=== PATIENT | male | born 1950 | race Caucasian/White ===

== ENCOUNTER 2020-10-15 15:14 | Observation (INO) ==
--- NOTE | 2020-10-15 15:28 | Emergency Department Note ---
Impression & Plan Atrial fibrillation with rapid ventricular response ED Provider Note NAME: HARLEY CARNES AGE: 70 SEX: M : 1950 ARRIVES VIA: Walk-In INFORMANT: Patient, ED PROVIDER(S): zE Stratton MD Chief Complaint: Irregular heartbeat HPI: Patient does present with concern for irregular heartbeat. The patient does have a history in 2018 of intermittent A. fib which subsequently became persistent where the patient did require an ablation. During this procedure which occurred at [facility] under Dr. Nguyen the patient did develop a pericardial tamponade and did require pericardiocentesis. The patient subsequently had been on metoprolol and Eliquis for a period of time but he was taken off this back in May. The patient does not have any local follow-up. The patient is some of his time between here in [place]. Patient denies any fevers, chills, chest pains or shortness of breath. The patient did notice today though that he was having persistent tachycardia and that his cardia mobile was noted that the patient did have A. fib with an elevated heart rate. The patient states that this has been intermittent for 2 weeks but persistent today. Patient has had some mild fatigue. Patient denies shortness of breath recent travel Covid symptoms or lower extremity swelling. No prior DVT or PE. The patient is currently not not on any medications. ROS: See HPI for pertinent positives and negatives. A total of 10 systems were reviewed and otherwise negative. Past medical history: See below Surgical history: See below Social history: See below Physical Exam: GENERAL: Wearing a mask. NAD, non-toxic. EYE EXAM: Normal conjunctiva. PERRL, no anisocoria and EOM's grossly intact w/o pain. NECK: Supple, no nuchal rigidity, no adenopathy, non-tender. No signs of meningismus. LUNGS: Clear to auscultation. Normal chest wall mechanics. HEART: NSR, no MRG. ABDOMEN: Abdomen soft, non-tender, normo-active bowel sounds, no masses, no rebound or guarding. BACK: No CVA TTP. SKIN: No rashes and no bruising. UPPER EXTREMITIES: Upper extremities are grossly normal. LOWER EXTREMITIES: Grossly normal, no edema. NEURO EXAM: A&O x3, cranial nerves II-XII grossly intact, normal speech, moves all 4 extremities on command w/o issue. Differential diagnoses: Premature contractions, electrolyte abnormality, cardiac dysrhythmia, thyroid dysfunction, pulmonary embolism, infection, gastrointestinal, as well as other pathologies. Course: Patient was seen and evaluated the bedside. Full history physical exam was performed. EKG: Indication: Tachycardia A. fib rate of 153 normal QRS and QT, normal axis Repeat EKG Undetermined rhythm, rate of 137 almost what appears to be a bigeminal type pat tern, normal axis, no significant change other than slightly decreased rate compared to prior. Repeat EKG after Cardizem Sinus tachycardia, rate of 104, normal intervals, normal axis. Imaging Studies: Radiology results as stated below per my review in the radiologist's interpretation: XR chest 1V portable CLINICAL HISTORY: weakness COMPARISON STUDY: No previous studies for comparison. FINDINGS: The cardiac and mediastinal contours are normal. There is no evidence of focal pulmonary consolidation. There is no evidence of failure. No pleural effusions are visualized.[ IMPRESSION: No active disease in the chest. ACT 112: Negative or not required by law. Electronically signed by: Dale Be M.D. 10/15/2020 4:12 PM Dictated: 10/15/20 1612Transcribed: 10/15/20 1612 Cardiac monitoring: An order was placed for continuous cardiac monitoring. The monitor shows a rate of 160s with irregularly irregular rhythm. MDM: Patient did present with concern for tachycardia regular heartbeat and concern for A. fib. Blood work is obtained. I did briefly attempt bedside ultrasound although views are not optimal but no obvious pericardial effusion concerning for tamponade. Patient did receive 10 mg total of Cardizem and converted to sinus. Blood work showed normal white count H&H. Platelet count is elevated. Kidney function unremarkable. BNP is slightly elevated but I believe likely related to rate. Covid negative. Heparin was ordered. After the heparin had been ordered the patient had stated to the inpatient team that he had taken Eliquis around 11 AM this morning. The patient had stated to me during his initial history and physical exam. I did speak the on-call hospitalist. The patient was admitted to the medicine service. Critical Care: I have personally spent 42 minutes of critical care time in direct management of this patient. This includes bedside care, interpretation of diagnostic studies, and testing, discussion with consultants, patient, and family members, and other require inpatient management activities. This 42 minutes is in excess of all separately billable procedures. Past Med/Surg History Medical History Atrial fibrillation Pericardial effusion Surgical History History of radiofrequency ablation (RFA) procedure for cardiac arrhythmia S/P pericardiocentesis Family History (Updated 10/15/20 @ 19:04 by MELODY Ward) Mother Diabetes Kidney disease Mother Diabetes Father Heart disease Social History Smoking Status: Never smoker Feels Safe at Home: Yes Allergies Allergies Allergy/AdvReac Type Severity Reaction Status Date / Time oxycodone [From OxyContin] Allergy Severe Throat Unverified 10/15/20 16:48 Swelling ciprofloxacin [From Cipro] Allergy Intermediate Rash Unverified 10/15/20 16:48 iodine Allergy Mild Unknown Unverified 10/15/20 16:48 Quinolones Allergy Mild RASH Unverified 10/21/09 03:54 shellfish derived Allergy Mild NAUSEA Unverified 09/19/06 17:23 Home Meds Home Medications Medication Instructions Recorded Confirmed apixaban [Eliquis] 5 mg PO BID 10/15/20 10/15/20 calcium 300 mg PO PM 10/15/20 10/15/20 ibuprofen 200 mg PO Q6H PRN 10/15/20 10/15/20 multivitamin 1 tab PO QAM 10/15/20 10/15/20 Results & Data (ED) Vital Signs Vital Signs - 24 hr 10/15/20 15:18 10/15/20 15:25 10/15/20 15:49 Temperature 36.9 C Temperature Source Oral Pulse Rate 194 H 104 H Pulse Rate [Apical] Pulse Rhythm [Apical] Pulse Strength [Apical] Respiratory Rate 20 Respiratory Effort / Characteristics Non-Labored Respiratory Depth Normal Respiratory Pattern Blood Pressure 121/79 148/80 H Blood Pressure [Right Arm] Blood Pressure Mean 93 102 Blood Pressure Mean [Right Arm] Blood Pressure Position [Right Arm] Pulse Oximetry 98 99 Oxygen Delivery Method Room Air Room Air Sepsis Recent Fever Within 48 Hours No Sepsis New/Unexplained Change in Mental Status No Sepsis Action Taken by Nursing No Action Required 10/15/20 16:00 10/15/20 16:32 10/15/20 17:30 Temperature Temperature Source Pulse Rate 102 H Pulse Rate [Apical] 103 H 101 H Pulse Rhythm [Apical] Regular Regular Pulse Strength [Apical] Normal Normal Respiratory Rate 16 20 19 Respiratory Effort / Characteristics Non-Labored Spontaneous Non-Labored Spontaneous Respiratory Depth Normal Normal Respiratory Pattern Regular Regular Blood Pressure 136/91 Blood Pressure [Right Arm] 129/85 134/93 Blood Pressure Mean 106 Blood Pressure Mean [Right Arm] 99 106 Blood Pressure Position [Right Arm] Sitting Sitting Pulse Oximetry 96 97 98 Oxygen Delivery Method Room Air Room Air Room Air Sepsis Recent Fever Within 48 Hours Sepsis New/Unexplained Change in Mental Status Sepsis Action Taken by Nursing 10/15/20 18:00 10/15/20 19:39 Temperature Temperature Source Pulse Rate 101 H 84 Pulse Rate [Apical] Pulse Rhythm [Apical] Pulse Strength [Apical] Respiratory Rate 18 16 Respiratory Effort / Characteristics Respiratory Depth Respiratory Pattern Blood Pressure 135/89 143/89 H Blood Pressure [Right Arm] Blood Pressure Mean 104 Blood Pressure Mean [Right Arm] Blood Pressure Position [Right Arm] Pulse Oximetry 95 99 Oxygen Delivery Method Room Air Sepsis Recent Fever Within 48 Hours Sepsis New/Unexplained Change in Mental Status Sepsis Action Taken by Alf Medications Current Medication List: was personally reviewed by me Laboratory Data Attestation: I reviewed the patient's lab results. Result diagrams: 10/15/20 15:25 10/15/20 15:25 Lab Results 10/15/20 10/15/20 10/15/20 Range/Units 15:25 15:25 15:25 WBC 10.09 (4.8-10.8) K/uL RBC 5.35 (4.7-6.1) M/uL Hgb 17.0 (14.0-18.0) g/dL Hct 50.3 (42-52) % MCV 94.0 (80-100) fL MCH 31.8 (25-34) pg MCHC 33.8 (32-36) g/dL RDW Std Deviation 44.2 (36.4-46.3) fL RDW Coeff of Salvador 13.0 (11.5-14.5) % Plt Count 432 H (130-400) K/uL MPV 9.9 (7.4-10.4) fL Immature Gran % (Auto) 0.5 % Neut % (Auto) 65.2 % Lymph % (Auto) 25.0 % [place] % (Auto) 7.7 % Eos % (Auto) 1.2 % Baso % (Auto) 0.4 % Neut # (Auto) 6.58 H (1.4-6.5) K/uL Lymph # (Auto) 2.52 (1.2-3.4) K/uL [place] # (Auto) 0.78 H (0.11-0.59) K/uL Eos # (Auto) 0.12 (0-0.5) K/uL Baso # (Auto) 0.04 (0-0.2) K/uL Immature Gran # (Auto) 0.05 H (0.00-0.02) K/uL PT 10.9 (9.0-12.0) Seconds INR 1.0 (0.9-1.1) APTT 33.0 H (21.0-31.0) Seconds PTT Ratio 1.2 Sodium 140 (136-145) mmol/L Potassium 4.0 (3.5-5.1) mmol/L Chloride 109 H (98-107) mmol/L Carbon Dioxide 28 (21-32) mmol/L Anion Gap 3.0 (3-11) BUN 15 (7-18) mg/dl Creatinine 1.19 (0.6-1.4) mg/dl Est Cr Clr Drug Dosing Not Reportable Est GFR ( Amer) 72.3 Est GFR (Non-Af Amer) 62.4 BUN/Creatinine Ratio 12.5 (10-20) Glucose 122 H (70-99) mg/dl Calcium 9.0 (8.5-10.1) mg/dl Phosphorus 3.1 (2.5-4.9) mg/dl Magnesium 2.3 (1.8-2.4) mg/dl Total Bilirubin 0.2 (0.2-1) mg/dl AST 18 (15-37) U/L ALT 28 (12-78) U/L Alkaline Phosphatase 70 (45-117) U/L Troponin I 0.015 (0-0.045) ng/ml NT-Pro-B Natriuret Pep 1157 H (0-900) pg/ml Total Protein 8.0 (6.4-8.2) gm/dl Albumin 3.4 (3.4-5.0) gm/dl Globulin 4.6 H (2.5-4.0) gm/dl Albumin/Globulin Ratio 0.7 L (0.9-2) TSH 2.560 (0.300-4.500) uIu/ml Urine Color Urine Appearance (Clear) Urine pH (4.5-7.5) Ur Specific Tolstoy (1.000-1.030) Urine Protein (Negative) Urine Glucose (UA) (Negative) Urine Ketones (Negative) Urine Blood (Negative) Urine Nitrite (Negative) Urine Bilirubin (Negative) Urine Urobilinogen (Negative) Ur Leukocyte Esterase (Negative) COVID-19 Eval Order SARS-CoV-2, RNA, NAAT (NEGATIVE) 10/15/20 10/15/20 10/15/20 Range/Units 16:04 16:04 16:13 WBC (4.8-10.8) K/uL RBC (4.7-6.1) M/uL Hgb (14.0-18.0) g/dL Hct (42-52) % MCV (80-100) fL MCH (25-34) pg MCHC (32-36) g/dL RDW Std Deviation (36.4-46.3) fL RDW Coeff of Salvador (11.5-14.5) % Plt Count (130-400) K/uL MPV (7.4-10.4) fL Immature Gran % (Auto) % Neut % (Auto) % Lymph % (Auto) % Ring[place] % (Auto) % Eos % (Auto) % Baso % (Auto) % Neut # (Auto) (1.4-6.5) K/uL Lymph # (Auto) (1.2-3.4) K/uL Ring[place] # (Auto) (0.11-0.59) K/uL Eos # (Auto) (0-0.5) K/uL Baso # (Auto) (0-0.2) K/uL Immature Gran # (Auto) (0.00-0.02) K/uL PT (9.0-12.0) Seconds INR (0.9-1.1) APTT (21.0-31.0) Seconds PTT Ratio Sodium (136-145) mmol/L Potassium (3.5-5.1) mmol/L Chloride (98-107) mmol/L Carbon Dioxide (21-32) mmol/L Anion Gap (3-11) BUN (7-18) mg/dl Creatinine (0.6-1.4) mg/dl Est Cr Clr Drug Dosing Est GFR ( Amer) Est GFR (Non-Af Amer) BUN/Creatinine Ratio (10-20) Glucose (70-99) mg/dl Calcium (8.5-10.1) mg/dl Phosphorus (2.5-4.9) mg/dl Magnesium (1.8-2.4) mg/dl Total Bilirubin (0.2-1) mg/dl AST (15-37) U/L ALT (12-78) U/L Alkaline Phosphatase (45-117) U/L Troponin I (0-0.045) ng/ml NT-Pro-B Natriuret Pep (0-900) pg/ml Total Protein (6.4-8.2) gm/dl Albumin (3.4-5.0) gm/dl Globulin (2.5-4.0) gm/dl Albumin/Globulin Ratio (0.9-2) TSH (0.300-4.500) uIu/ml Urine Color Yellow Urine Appearance Clear (Clear) Urine pH 6.5 (4.5-7.5) Ur Specific Tolstoy 1.008 (1.000-1.030) Urine Protein Negative (Negative) Urine Glucose (UA) Negative (Negative) Urine Ketones Negative (Negative) Urine Blood Negative (Negative) Urine Nitrite Negative (Negative) Urine Bilirubin Negative (Negative) Urine Urobilinogen Negative (Negative) Ur Leukocyte Esterase Negative (Negative) COVID-19 Eval Order Covid19 IDNow [facility] SARS-CoV-2, RNA, NAAT NEGATIVE (NEGATIVE) Administered Medications Heparin Sodium/Dextrose (Heparin Sodium/Dextrose) 25,000 units in 500 mls @ 0.02 mls/hr IV .Q24H [facility]; Protocol Stop: 11/14/20 17:14 Last Admin: 10/15/20 18:20 Dose: Not Given Documented by: [id number] Discontinued Medications Diltiazem HCl (Diltiazem Hcl 5 Mg/Ml 5 Ml Vial) 25 mg IV NOW STA Stop: 10/15/20 15:37 Last Admin: 10/15/20 15:46 Dose: 10 mg Documented by: [id number] Cosigned by: [id number] Heparin Sodium/Dextrose (Heparin Iv Standard *No* Bolus) 1 ea IV ONE ONE; Protocol Stop: 10/15/20 17:08 Last Admin: 10/15/20 18:20 Dose: Not Given Documented by: [id number] Sodium Chloride (Nss) 500 mls @ 999 mls/hr IV .Q31M BRAYDEN Stop: 10/15/20 16:15 Last Infusion: 10/15/20 16:48 Dose: 0 mls/hr Documented by: [id number] Admin: 10/15/20 15:47 Dose: 999 mls/hr Documented by: [id number] Sodium Chloride (Nss 1000ml) 500 mls @ 999 mls/hr IV .Q31M ONE Stop: 10/15/20 16:25 Last Infusion: 10/15/20 16:54 Dose: 0 mls/hr Documented by: [id number] Admin: 10/15/20 16:23 Dose: 999 mls/hr Documented by: [id number] Metoprolol Tartrate (Metoprolol Tartrate 50 Mg Tab) 25 mg PO NOW STA Stop: 10/15/20 18:49 Last Admin: 10/15/20 19:06 Dose: 25 mg Documented by: [id number] Discharge Plan Visit Data Chief Complaint: Cardiac Assessment Stated Complaint: AFIB ED Provider: Ez Stratton Discharge Problem: Atrial fibrillation with rapid ventricular response Discharge Instructions Interventions: ED Discharge Assessment Last Done: 10/15/20 19:39 Forms Stand Alone Forms: [facility] Prescriptions Prescriptions: No Action ibuprofen 200 mg Tablet 200 mg PO Q6H PRN (Reason: fever/pain) RF: 0 calcium 300 mg Tablet,Chewable 300 mg PO PM RF: 0 multivitamin Tablet,Chewable 1 tab PO QAM RF: 0 Eliquis 5 mg tablet 5 mg PO BID RF: 0 Referrals Referrals: PCP,NO [Primary Care Provider] -
[2020-10-15] MEDS ORDERED: dilTIAZem HCl 5 MG/ML 5 ML VIAL IV STA (15:36)
[2020-10-15] MEDS ORDERED: SODIUM CHLORIDE 0.9% 500 ML IV SCH (15:45)
[2020-10-15 15:47] LABS: Basophils # (auto) 0.04 K/uL (0-0.2); Basophils % (auto) 0.4 %; Eosinophils # (auto) 0.12 K/uL (0-0.5); Eosinophils % (auto) 1.2 %; Hematocrit (blood only) 50.3 % (42-52); Immature Granulocytes # (auto) 0.05 K/uL (0.00-0.02); Immature Granulocytes % (auto) 0.5 %; Lymphocytes # (auto) 2.52 K/uL (1.2-3.4); Mean Corpuscular Hemoglobin 31.8 pg (25-34); Mean Corpuscular Hgb Conc 33.8 g/dL (32-36); Mean Platelet Volume 9.9 fL (7.4-10.4); Monocytes # (auto) 0.78 K/uL (0.11-0.59); Monocytes % (auto) 7.7 %; Neutrophils # (auto) 6.58 K/uL (1.4-6.5); Neutrophils % (auto) 65.2 %; Platelet Count 432 K/uL (130-400); RDW Standard Deviation 44.2 fL (36.4-46.3); Red Blood Count 5.35 M/uL (4.7-6.1); White Blood Count 10.09 K/uL (4.8-10.8)
[2020-10-15] MEDS ORDERED: SODIUM CHLORIDE 0.9% 1000ML 500 ML IV ONE (15:55)
[2020-10-15 15:56] LABS: Alanine Aminotransferase 28 U/L (12-78); Albumin Level 3.4 gm/dl (3.4-5.0); Aspartate Aminotransferase 18 U/L (15-37); BUN Creatinine Ratio 12.5 (10-20); Blood Urea Nitrogen 15 mg/dl (7-18); Carbon Dioxide 28 mmol/L (21-32); Chloride 109 mmol/L (98-107); Est GFR (African American) 72.3; Est GFR (Non-African American) 62.4; Glucose 122 mg/dl (70-99); Magnesium 2.3 mg/dl (1.8-2.4); Sodium 140 mmol/L (136-145)
[2020-10-15 16:07] LABS: Albumin Globulin Ratio 0.7 (0.9-2); Alkaline Phosphatase 70 U/L (45-117); Bilirubin,Total 0.2 mg/dl (0.2-1); Globulin 4.6 gm/dl (2.5-4.0); NT Pro B Type Natriuretic Pept 1157 pg/ml (0-900); Phosphorus 3.1 mg/dl (2.5-4.9); Troponin I 0.015 ng/ml (0-0.045)
--- NOTE | 2020-10-15 16:13 | XRay Report ---
XR chest 1V portable CLINICAL HISTORY: weakness COMPARISON STUDY: No previous studies for comparison. FINDINGS: The cardiac and mediastinal contours are normal. There is no evidence of focal pulmonary co nsolidation. There is no evidence of failure. No pleural effusions are visualized.[ IMPRESSION: No active disease in the chest. ACT 112: Negative or not required by law. Electronically signed by: Dale Be M.D. 10/15/2020 4:12 PM
[2020-10-15 16:43] LABS: Appearance Urine Clear (Clear); Bilirubin Urine Negative (Negative); Blood Urine Negative (Negative); Color Urine Yellow; Glucose Urine UA Negative (Negative); Ketones Urine Negative (Negative); Leukocyte Esterase Urine Negative (Negative); Nitrite Urine Negative (Negative); Protein Urine Negative (Negative); Specific Gravity Urine 1.008 (1.000-1.030); Urobilinogen Urine Negative (Negative); pH Urine 6.5 (4.5-7.5)
[2020-10-15] MEDS ORDERED: Heparin IV Standard *NO* Bolus IV ONE (17:07)
[2020-10-15] MEDS ORDERED: HEPARIN SODIUM/DEXTROSE 25,000 UNITS/500 ML BAG IV SCH (17:15)
[2020-10-15 17:57] LABS: Partial Thromboplastin Ratio 1.2; Prothrombin Time 10.9 Seconds (9.0-12.0)
--- NOTE | 2020-10-15 18:44 | History & Physical Report ---
Date of Service October 15, 2020 Assessment & Plan (1) Atrial fibrillation: Patient reports no other history, will request records from his PCP. Patient is normally seen by Neeru Tomlin NP with [facility]. - Patient took Eliquis this morning at 1100, therefore should be anticoagulated at this time. Will continue BID dosing of Eliquis 5 mg. - Currently NSR on monitor rate controlled following diltiazem - Will give Lopressor 25 mg PO x1 now, follow up with AM dose, then titrate from there. - Lopressor 5 mg IV q4 h prn for HR >120 - Electrolytes normal - BNP elevated at 1157--- evalaute with ECHO in am - ECHO in am - Cardiology consult, appreciate their recs - Lpid panel, hgba1c, weight, ecg in morning - risk stratify patient and optimize/initiate new medicaitons. History of Present Illness Primary Care Provider: NO PCP 70 YOM with past medical history of afib, ablation, pericardial tamponade. Patient reports that he is "not really on any medications and has no problems" The patient [place] splits his living time between [place] and here however, since he has been spending his time here. The patient is normally seen out at [facility]. The patient endorses his only real history was in 2019 where he had episode of atrial fibrillation and required and ablation. The ablation was done at [facility] and during the ablation it was noted he had a pericardial effusion that needed drained. After that he was placed on Eliquis for a short time and Metoprolol. This was discontinued a couple of months later and has not been on this in a while. Two weeks ago the patient started to experience some episodes of tachycardia and uses his cardia mobile to help monitor this, sent it to his provider in [place] and he reports that it was not anything. Today however he noticed his HR was going fast and again sent his cardia mobile reading in to his provider and at that time he got a prescription called in for Eliquis which he took this morning at 1100. The patient then came to the emergency room because his blood pressure reading was low. In the EMD, the patient HR was noted to be in afib 150-180 and was given diltiazem 10 mg IV. The patient is currently in NSR 90-100 on bedside monitor. The patient denies any symptoms or recent sick contacts. he feels generally well and able to do his normal activities. Patient will be admitted for observation, monitoring, and therapeutic dosing of his medications. Allergies Allergy/AdvReac Type Severity Reaction Status Date / Time oxycodone [From OxyContin] Allergy Severe Throat Unverified 10/15/20 16:48 Swelling ciprofloxacin [From Cipro] Allergy Intermediate Rash Unverified 10/15/20 16:48 iodine Allergy Mild Unknown Unverified 10/15/20 16:48 Quinolones Allergy Mild RASH Unverified 10/21/09 03:54 shellfish derived Allergy Mild NAUSEA Unverified 09/19/06 17:23 Home Medications Medication Instructions Recorded Confirmed Type Eliquis 5 mg PO BID 10/15/20 10/15/20 History calcium 300 mg PO PM 10/15/20 10/15/20 History multivitamin 1 tab PO QAM 10/15/20 10/15/20 History diclofenac sodium [Voltaren] 2 g EXT Q8H PRN #100 g 10/16/20 Rx metoprolol succinate 25 mg PO QAM #30 tab 10/16/20 Rx Past Med/Surg History Medical History Atrial fibrillation Pericardial effusion Surgical History History of radiofrequency ablation (RFA) procedure for cardiac arrhythmia S/P pericardiocentesis Family History Mother Diabetes Kidney disease Mother Diabetes Father Heart disease Social History (Updated 10/16/20 @ 11:10 by Yovany Shea) Smoking Status: Never smoker Hx Alcohol Use: Yes Alcohol type: beer Hx Substance Use: No Preferred Language: Serbian Communication Ability: Effective After School Teacher Required: No Beliefs That Will Affect Care: None marital status: Current Living Situation: Spouse Current Living Situation Comment: splits time between [place] & [place] current occupational status: retired other: [employer] Graduate; avid sports fan Feels Safe at Home: Yes Safety Concerns: Feels Safe At This Time Assistive Devices: None Review of Systems Review of Systems: REVIEW OF SYSTEMS: Constitutional: No fever, sweats or chills Eyes: No diplopia, no worsening or blurred vision ENT: normal hearing, no trouble swallowing Respiratory: No cough, sputum, dyspnea at rest or on exertion Cardiovascular: (+) fast heart rate, no palpitations, No chest pain, tightness Abdomen: No pain, nausea, vomiting, diarrhea or constipation Musculoskeletal: No joint pain, calf pain, swelling Neurologic: No weakness, numbness/tingling, or balance problems Psychiatric: No anxiety or depression Skin: No rash or itch Physical Exam Physical Exam: PHYSICAL EXAM: General: awake, alert, no apparent distress Head: Normocephalic, atraumatic ENT: PERRL, EOMI, no pharyngeal exudate, mucous membranes moist Neuro: AAO x 3, speech clear and appropriate, strength intact bilaterally 5/5, sensation intact and equal all extremities no pronator drift Chest: equal rise and fall of the chest, no accessory muscle use, no heaves or thrills, Clear to auscultation, on room air, Cardiac: Regular rate and rhythm, telemetry reviewed, skin warm dry, cap refill <3 seconds, peripheral pulses +2 no JVD, no murmur, no edema GI: NABS x 4 quadrants, soft, nontender to palpation, no rebound, guarding or tenderness : Spontaneously voiding, no pain, no CVA tenderness, Extremities: Normal inspection, no peripheral edema or erythema, calfs nontender to palpation Psych: Normal mood and affect Skin: no rash or erythema Results & Data Results & Data ([facility]) Vital Signs (Past 12 Hours) Vital Signs Temp Pulse Pulse Resp BP BP Pulse Ox 10/15/20 18:00 101 H 18 135/89 95 10/15/20 17:30 102 H 19 136/91 98 10/15/20 16:32 101 H 20 134/93 97 10/15/20 16:00 103 H 16 129/85 96 10/15/20 15:49 104 H 148/80 H 10/15/20 15:25 99 10/15/20 15:18 36.9 C 194 H 20 121/79 98 Laboratory Results Abnormal lab results 10/15/20 10/15/20 10/15/20 Range/Units 15:25 15:25 15:25 Plt Count 432 H (130-400) K/uL Neut # (Auto) 6.58 H (1.4-6.5) K/uL Thurston # (Auto) 0.78 H (0.11-0.59) K/uL Immature Gran # (Auto) 0.05 H (0.00-0.02) K/uL APTT 33.0 H (21.0-31.0) Seconds Chloride 109 H (98-107) mmol/L Glucose 122 H (70-99) mg/dl NT-Pro-B Natriuret Pep 1157 H (0-900) pg/ml Globulin 4.6 H (2.5-4.0) gm/dl Albumin/Globulin Ratio 0.7 L (0.9-2) Diagnostic Findings XR chest 1V portable CLINICAL HISTORY: weakness COMPARISON STUDY: No previous studies for comparison. FINDINGS: The cardiac and mediastinal contours are normal. There is no evidence of focal pulmonary consolidation. There is no evidence of failure. No pleural effusions are visualized. IMPRESSION: No active disease in the chest. ECG Additional Comments: 1524:Atrial fibrillation with rapid ventricular response Nonspecific T waves: 1854 Sinus tachycardia Code Status & VTE Plan Code Status full elequis SCD Supervising Physician Co-Signing Physician Notes Attending Attestation & Admission Note: Pt seen and examined, chart reviewed, care plan d/w MELODY Samaniego. I agree w/ the reid components of his documentation. Pleasant 70yo male with h/o PAF, s/p ablation at [facility] complicated by pericardial effusion with tamponade requiring emergent pericardiocentesis. Presents with multiple episodes of tachycardia x 2 weeks, followed by episode of tachycardia to 200 BPM earlier today. This was associated with dizziness/lightheadedness and hypotension. He was in contact with his primary bioinformatics support specialist in [place] who called in eliquis for him. Due to the hypotension the patient sought out medical attention at our ER. Upon presentation was in rapid a.fib. Ultimately spontaneously converted to sinus tach while awaiting admission. PMH, PSH, allergies, meds, sochx, famhx - reviewed vitals stable, afebrile, mild tachycardia (low 100s) gen - NAD neck - no JVD heart - sinus tach, s1 s2, no murmur lungs - CTA b/l pulses - radial, DP 2+ b/l abd - soft NT ND BS+ ext - no edema labs reviewed K, Mag, TSH wnl cxr wnl initial EKG in ER - rapid a.fib, ST segment depression anteroseptal leads about 1mm COVID neg BNP minimally elevated A/P: Recurrent PAF. Spontaneously converted back to NSR. Prior h/o PAF s/p ablation at [facility] several years ago. Start beta carla. Continue eliquis 5mg BID. Telemetry. Echo. Formal cards consult - does not have local bioinformatics support specialist. Need for antiarrhythmic given the rapid, symptomatic nature of some episodes?? Defer that to cardiology. h/o procedure-related pericardial effusion s/p pericardiocentesis - no evidence on physical exam of pericardial effusion, no low voltage or pulsus paradoxis, etc. Yovany Shea MD PG Care Time/CCT Total # of Minutes Spent Total Time Spent with Patient: Total time spent is greater than 50% in coordination of care (as documented) at patient's floor/unit and/or counseling patient: Coding Level of Care Code 83244 OBS Care - Level 3 Diagnoses Atrial fibrillation I48.0 Atrial fibrillation type: paroxysmal (1) Atrial fibrillation Atrial fibrillation type: paroxysmal Qualified Code(s): I48.0 - Paroxysmal atrial fibrillation
[2020-10-15] MEDS ORDERED: METOPROLOL TARTRATE 50 MG TAB PO STA (18:48)
[2020-10-15] MEDS ORDERED: METOPROLOL TARTRATE 1 MG/ML VIAL IV PRN (20:48)
[2020-10-15] MEDS: APIXABAN 5 MG TABLET PO SCH (22:00)
[2020-10-16] MEDS ORDERED: ACETAMINOPHEN 325 MG TAB PO PRN (05:15)
[2020-10-16] MEDS ORDERED: DICLOFENAC SOD 1% GEL 100 GM TUBE EXT PRN (05:15)
[2020-10-16 06:25] LABS: Basophils # (auto) 0.03 K/uL (0-0.2); Basophils % (auto) 0.4 %; Eosinophils # (auto) 0.17 K/uL (0-0.5); Eosinophils % (auto) 2.2 %; Hematocrit (blood only) 44.3 % (42-52); Hemoglobin 14.9 g/dL (14.0-18.0); Immature Granulocytes # (auto) 0.03 K/uL (0.00-0.02); Immature Granulocytes % (auto) 0.4 %; Lymphocytes # (auto) 1.73 K/uL (1.2-3.4); Lymphocytes % (auto) 22.2 %; Mean Corpuscular Hemoglobin 31.5 pg (25-34); Mean Corpuscular Hgb Conc 33.6 g/dL (32-36); Mean Corpuscular Volume 93.7 fL (80-100); Mean Platelet Volume 9.6 fL (7.4-10.4); Monocytes % (auto) 10.3 %; Neutrophils # (auto) 5.02 K/uL (1.4-6.5); Neutrophils % (auto) 64.5 %; Platelet Count 344 K/uL (130-400); RDW Coefficient of Variation 13.1 % (11.5-14.5); RDW Standard Deviation 45.2 fL (36.4-46.3); Red Blood Count 4.73 M/uL (4.7-6.1); White Blood Count 7.78 K/uL (4.8-10.8)
[2020-10-16 06:54] LABS: BUN Creatinine Ratio 13.6 (10-20); Calcium 8.5 mg/dl (8.5-10.1); Creatinine Clr Calc Pharmacy 84.5 ml/min; Est GFR (African American) 87.1; Est GFR (Non-African American) 75.2; Magnesium 2.2 mg/dl (1.8-2.4)
[2020-10-16] MEDS: APIXABAN 5 MG TABLET PO SCH (08:08)
[2020-10-16] MEDS ORDERED: METOPROLOL SUCC 25MG EXT REL TAB PO SCH (09:00)
--- NOTE | 2020-10-16 10:00 | XCELERA ---
[id number]
--- NOTE | 2020-10-16 10:48 | Discharge Summary ---
Date of Service October 16, 2020 Admission HPI Per Admitting Provider 70 YOM with past medical history of afib, ablation, pericardial tamponade. Patient reports that he is "not really on any medications and has no problems" The patient [place] however, since he has been spending his time here. The patient is normally seen out at [facility]. The patient endorses his only real history was in 2019 where he had episode of atrial fibrillation and required and ablation. The ablation was done at [facility] and during the ablation it was noted he had a pericardial effusion that needed drained. After that he was placed on Eliquis for a short time and Metoprolol. This was discontinued a couple of months later and has not been on this in a while. Two weeks ago the patient started to experience some episodes of tachycardia and uses his cardia mobile to help monitor this, sent it to his provider in [place] and he reports that it was not anything. Today however he noticed his HR was going fast and again sent his cardia mobile reading in to his provider and at that time he got a prescription called in for Eliquis which he took this morning at 1100. The patient then came to the emergency room because his blood pressure reading was low. In the EMD, the patient HR was noted to be in afib 150-180 and was given diltiazem 10 mg IV. The patient is currently in NSR 90-100 on bedside monitor. The patient denies any symptoms or recent sick contacts. he feels generally well and able to do his normal activities. Patient will be admitted for observation, monitoring, and therapeutic dosing of his medications. 16Oct2020- Patient examined on morning rounds, telemetry reviewed, remained in NSR all. ECHO performed (see results), tolerated addition back of metorprolol and eliquis. Stable for discharge. Admission Exam (Per Admitting) Constitutional PHYSICAL EXAM: General: awake, alert, no apparent distress Head: Normocephalic, atraumatic ENT: PERRL, EOMI, no pharyngeal exudate, mucous membranes moist Neuro: AAO x 3, speech clear and appropriate, strength intact bilaterally 5/5, sensation intact and equal all extremities no pronator drift Chest: equal rise and fall of the chest, no accessory muscle use, no heaves or thrills, Clear to auscultation, on room air, Cardiac: Regular rate and rhythm, telemetry reviewed, skin warm dry, cap refill <3 seconds, peripheral pulses +2 no JVD, no murmur, no edema GI: NABS x 4 quadrants, soft, nontender to palpation, no rebound, guarding or tenderness : Spontaneously voiding, no pain, no CVA tenderness, Extremities: Normal inspection, no peripheral edema or erythema, calfs nontender to palpation Psych: Normal mood and affect Skin: no rash or erythema Specialty Data Cardiology ECHO Discharge Data Consultations 10/15/20 17:32 ED Decision to Admit Stat 10/15/20 20:48 Consult Cardiology Routine Hospital Course (1) Atrial fibrillation: Patient reports no other history Patient is normally seen by Neeru Tomlin NP with [facility]. Converted from Atrial fibrillation to Atrial flutter in ER, then to NSR after admission. Rates controlled No issues with bleeding--> Will continue BID dosing of Eliquis 5 mg on discharge. Started on Toprol XL 25mg po once daily [facility] board winder number provided for local care. - Electrolytes normal - BNP elevated at 1157--- evaluated with ECHO which showed LVH, preserved EF - Cardiology consult, appreciate their recs - Lipid panel- normal ASCVD risk 11% Call [facility] cardiology office on Saturday to schedule follow up appointment (2) LVH (left ventricular hypertrophy): (3) Atrial flutter with rapid ventricular response: (4) Elevated brain natriuretic peptide (BNP) level: Secondary to rapid rates but no clinical evidence of acute CHF Stable for dc to home Supervising Physician Co-Signing Physician Notes BOOKKEEPERS SUPERVISOR Supervision note: I have personally seen and examined the patient and discussed and verified the reid points of the history and physical along with the plan with MELODY Samaniego with the following exceptions and/or additions: Pt doing very well today, is in NSR, denies CP/palpitations/SOB. No history of bleeding. VSS NAD, AAOx3 RRR no mgr CTAB no wcr ABd +BS soft NT Ext no edema Labs and ECGs reviewed Discussed care with Cardiology STable for dc to home on Eliquis, Toprol CLose f/u with Cardiology either here, locally, or in [facility] Coding Level of Care Code 98502 OBS Care - Discharge Medical Decision Making Straight Forward Diagnoses Atrial fibrillation I48.0 Atrial fibrillation type: paroxysmal LVH (left ventricular hypertrophy) I51.7 Atrial flutter with rapid ventricular response I48.92 Elevated brain natriuretic peptide (BNP) level R79.89 Time Spent (min) 35
--- NOTE | 2020-10-16 11:31 | Cardiology Consultation ---
Date of Consultation October 16, 2020 Assessment & Plan (1) Atrial dysrhythmia: -was in atrial fibrillation with rapid ventricular response at time of presentation. -2 subsequent EKGs noted atrial flutter with two-to-one conduction. -patient currently in normal sinus rhythm. -would continue metoprolol succinate and apixaban. -stable for hospital discharge. -follow-up with electrophysiology team at [facility]. Telephone follow-up already scheduled for tomorrow. (2) LVH (left ventricular hypertrophy): -mild left ventricular hypertrophy noted on current echocardiogram. History of Present Illness Attending Physician: Grace Rangel MD History of Present Illness Mr. Cisneros is a 62-year-old male admitted yesterday with atrial fibrillation and a rapid ventricular response. This consultation was ordered to assist in his management. Of note, the patient is typically followed by earth boring machine operator at [facility] the electrophysiology team at the [facility]. The patient was in his usual state of health until approximately 2 weeks ago. The patient began to note palpitations and his Fitbit identified a rapid heart rate. The patient sent numerous monitor strips to his ledge man at the [facility]. He was told that everything was okay. However, on the morning of presentation, the patient was awakened from sleep with a rapid and irregular heart rate and palpitations. He transmitted a monitor strip and was told that he was likely in atrial fibrillation. He was noticing low blood pressures at home, therefore, presented to the emergency room for further care. Of note, the patient was called in a prescription for Eliquis on the day of presentation. The patient has a history of paroxysmal atrial fibrillation and flutter. He underwent a radiofrequency ablation in April 2019 at the [facility]. Unfortunately, that procedure was complicated by cardiac perforation and tamponade. The patient has done well from a cardiac perspective until that described above. He walks on daily basis for exercise. He does not experience exertional chest pain or limiting dyspnea. He further denies syncope, presyncope, PND, orthopnea, lower extremity edema, and claudication. Currently, patient is resting comfortably in bed without complaints. Past medical and surgical history 1. Paroxysmal atrial fibrillation/flutter 2. Radiofrequency ablation-April 2019, [facility] 3. Postprocedure cardiac tamponade-April 2019 4. Lumbar fusion -2011 Social history and lives with his Retired No tobacco Occasional alcohol Family history No early coronary artery disease Review of systems A 10 review systems was negative except for that described above. Allergies Allergy/AdvReac Type Severity Reaction Status Date / Time oxycodone [From OxyContin] Allergy Severe Throat Unverified 10/15/20 16:48 Swelling ciprofloxacin [From Cipro] Allergy Intermediate Rash Unverified 10/15/20 16:48 iodine Allergy Mild Unknown Unverified 10/15/20 16:48 Quinolones Allergy Mild RASH Unverified 10/21/09 03:54 shellfish derived Allergy Mild NAUSEA Unverified 09/19/06 17:23 Home Medications Medication Instructions Recorded Confirmed Type Eliquis 5 mg PO BID 10/15/20 10/15/20 History calcium 300 mg PO PM 10/15/20 10/15/20 History multivitamin 1 tab PO QAM 10/15/20 10/15/20 History metoprolol succinate 25 mg PO QAM #30 tab 10/16/20 Rx Patient History Medical History Atrial fibrillation Pericardial effusion Surgical History History of radiofrequency ablation (RFA) procedure for cardiac arrhythmia S/P pericardiocentesis Family History Mother Diabetes Kidney disease Mother Diabetes Father Heart disease Social History (Updated 10/16/20 @ 11:10 by Yovany Shea) Smoking Status: Never smoker Hx Alcohol Use: Yes Alcohol type: beer Hx Substance Use: No Preferred Language: Sami Communication Ability: Effective Volleyball Commentator Required: No Beliefs That Will Affect Care: None marital status: Current Living Situation: Spouse Current Living Situation Comment: splits time between [place] & [employer] current occupational status: retired other: [employer] Graduate; avid sports fan Feels Safe at Home: Yes Safety Concerns: Feels Safe At This Time Assistive Devices: None Physical Exam Physical Exam: In general this is a well-developed well-nourished white male in no acute distress. HEENT exam is negative. Neck is supple with full carotid upstrokes. There are no carotid bruits. Jugular venous pressure is flat at 90. There is no thyromegaly. Cardiovascular exam reveals a regular rhythm with a normal S1 and S2. No S3, S4, or murmurs are noted. Lungs are clear without rales, rhonchi, or wheezes. Abdomen is soft and nontender without bruits. Extremities reveal intact radial artery and posterior tibial pulses bilaterally. There is no peripheral edema. Results & Data ([facility]) Vital Signs (Past 12 Hours) Vital Signs Temp Pulse Pulse Pulse Resp BP Pulse Ox 10/16/20 11:16 36.8 C 101 H 77 20 110/71 94 10/16/20 07:54 36.8 C 77 20 110/71 94 10/16/20 07:41 80 10/16/20 03:37 36.6 C 74 18 100/62 94 10/16/20 01:33 103 H Laboratory Results CBC notes hemoglobin 14.9, hematocrit 44.3, white count 7.78, platelet count [id number]. Electrolytes note a sodium of 143, potassium 4.0, chloride 112, bicarb 26, BUN 14, creatinine 1.02, and glucose of 94. Initial troponin was 0.015. BNP is mildly elevated 1157. TSH is normal at 2.56. LDL cholesterol is 97 with an HDL of 40. Diagnostic Findings Initial EKG noted atrial fibrillation with rapid ventricular response. There is a nonspecific T-wave abnormality. Second tracing noted atrial flutter with 2-1 conduction. Third tracing also noted atrial flutter with 2-1 conduction. Review of engine monitor noted conversion to normal sinus rhythm at approximately 1:00 a.m. today. Echocardiogram notes normal left ventricular systolic function without wall motion abnormalities. Left ventricular ejection fraction 60-65%. There is mild LVH. There is mild mitral regurgitation. Chest x-ray shows no acute disease. PG Care Time/CCT Total # of Minutes Spent Total Time Spent with Patient: Total time spent is greater than 50% in coordination of care (as documented) at patient's floor/unit and/or counseling patient: Coding Level of Care Code 78843 OBS Care - Level 3 Diagnoses Atrial dysrhythmia I49.8 LVH (left ventricular hypertrophy) I51.7
--- NOTE | 2020-10-16 12:28 | Electrocardiogram Report ---
Test Reason : Blood Pressure : / mmHG Vent. Rate : 153 BPM Atrial Rate : 192 BPM P-R Int : 000 ms QRS Dur : 086 ms QT Int : 280 ms P-R-T Axes : 000 017 000 degrees QTc Int : 447 ms Poor data quality, interpretation may be adversely affected Atrial fibrillation with rapid ventricular response Nonspecific T wave abnormality Abnormal ECG No previous ECGs available Confirmed by Fredo Acosta ([id number]) on 10/16/2020 12:27:37 PM Referred By: SELF Confirmed By:Fredo Acosta
--- NOTE | 2020-10-16 12:29 | Electrocardiogram Report ---
Test Reason : Blood Pressure : / mmHG Vent. Rate : 101 BPM Atrial Rate : 101 BPM P-R Int : 158 ms QRS Dur : 088 ms QT Int : 332 ms P-R-T Axes : 075 023 031 degrees QTc Int : 430 ms Atrial flutter with 2 to 1 block Otherwise normal ECG When compared with ECG of 15-OCT-2020 15:36, (unconfirmed) No significant change Confirmed by Fredo Acosta ([id number]) on 10/16/2020 12:28:54 PM Referred By: REFERRED SELF Confirmed By:Fredo Acosta
--- NOTE | 2020-10-16 12:32 | Electrocardiogram Report ---
Test Reason : Blood Pressure : / mmHG Vent. Rate : 104 BPM Atrial Rate : 104 BPM P-R Int : 164 ms QRS Dur : 084 ms QT Int : 328 ms P-R-T Axes : 051 002 013 degrees QTc Int : 431 ms Atrial flutter with 2 to 1 block Septal infarct , age undetermined Abnormal ECG When compared with ECG of 15-OCT-2020 15:52, (unconfirmed) No significant change was found Confirmed by Fredo Acosta ([id number]) on 10/16/2020 12:31:47 PM Referred By: REFERRED SELF Confirmed By:Fredo Acosta
[2020-10-17 05:58] LABS: Estimated Average Glucose 114 mg/dl; Hemoglobin A1C 5.6 % (4.5-5.6)
--- NOTE | 2020-10-24 10:18 | Coding Query ---
A supporting diagnosis is required for the test/procedure performed on this patient in order for us to be reimbursed by the patient's insurance. Please provide a supporting diagnosis for the following test/procedure listed below next to the test name along with your signature. *If there is no additional diagnosis for this patient that would support the following test/procedure please document that below next to the test/procedure. Test(s)/Procedure(s) that require a supporting diagnosis: Folic Acid DIAGNOSIS:__Atrial fibrillation Provider Signature: __Grace Rangel M.D. Date: _10/24/20 Thank you Jennyfer Zepeda Health Information Management Once completed, please kindly fax back to [phone] For questions please call [phone] SOL
== END 2020-10-16 12:52 | disposition home or self-care (01) ==
LOC: ED 15:14 → 2N 15:14 → SUATTDRO 18:49 → 2N 19:39